=== PATIENT | female | born 1955 | race Caucasian/White ===

== ENCOUNTER 2016-12-12 17:49 | Emergency (ER) | payer OTHER ==
[~2016-12-12] VITALS: Ht 149.9 cm; Wt 66.8 kg
[~2016-12-12 17:49] MED LIST: ATOR40TA28 PO; LISI-618 PO; METF10002 PO; SULF1TAB42 PO
[2016-12-12] MEDS ORDERED: PRAV20TA4 PO (17:51)
[2016-12-12 17:57] LABS: GLUCOSE,POINT OF CARE 134 MG/DL (70-110)
[2016-12-12 19:51] VITALS: BP 142/89
== END 2016-12-12 19:53 | disposition home or self-care (01) ==
LOC: EMS 17:50
DX: L03.011 Cellulitis of right finger (principal); E11.9 Type 2 diabetes mellitus without complications; I10 Essential (primary) hypertension; E78.00 Pure hypercholesterolemia, unspecified; Z88.6 Allergy status to analgesic agent
CPT/HCPCS: 82962; 99284

== ENCOUNTER 2020-12-18 16:21 | Emergency (ER) | payer MEDICARE, OTHER ==
[~2020-12-18] VITALS: Ht 149.9 cm; Wt 79.5 kg
[~2020-12-18 16:21] MED LIST changes: -LISI-618 PO; +LISI20TA24 PO; +METF-446 PO; -METF10002 PO; +PRAV20TA4 PO; -SULF1TAB42 PO
[2020-12-18 17:11] LABS: BASOPHILS % (AUTO) 0.3 % (0.0-2.0); EOSINOPHILS % (AUTO) 0.9 % (1.0-6.0); HEMATOCRIT 35.9 % (36-46); HEMOGLOBIN 11.8 g/dL (12.0-16.0); LYMPHOCYTES # (AUTO) 0.6 K/uL (1.0-4.8); LYMPHOCYTES % (AUTO) 6.4 % (22.0-44.0); MEAN CORPUSCULAR HEMOGLOBIN 31.5 pg (26.0-34.0); MEAN CORPUSCULAR HGB CONC 32.8 G/dL (31.0-37.0); MEAN CORPUSCULAR VOLUME 96 fL (80-100); MONOCYTES # (AUTO) 0.3 K/uL (0.1-1.0); MONOCYTES % (AUTO) 3.1 % (2.0-9.0); NEUTROPHILS % (AUTO) 89.3 % (40.0-70.0); PLATELET COUNT (AUTO) 182 K/uL (150-450); RED BLOOD CELL COUNT(AUTO) 3.74 MIL/uL (4.00-5.20); RED CELL DISTRIBUTION WIDTH 13.4 % (11.5-14.5)
[2020-12-18 17:20] LABS: ANION GAP 8 mmol/L (8-16); CARBON DIOXIDE 29 mmol/L (22-29); CHLORIDE 104 mmol/L (98-107); CREATININE 0.83 mg/dL (0.60-1.30); GLUCOSE,RANDOM 146 mg/dL (70-110); POTASSIUM 3.9 mmol/L (3.5-5.1); SODIUM SERUM 141 mmol/L (136-145); UREA NITROGEN, BLOOD 20 mg/dL (7-18)
[2020-12-18 17:21] LABS: CALCIUM, TOTAL 8.8 mg/dL (8.8-10.5); GLOMERULAR FILTR. RATE CALC > 60 mL/min (>60)
[2020-12-18 17:26] LABS: ALANINE AMINOTRANSFERASE 15 U/L (12-78); ALBUMIN 3.5 g/dL (3.4-5.0); ALKALINE PHOSPHATASE 94 U/L (46-116); ASPARTATE AMINOTRANSFERASE 19 U/L (15-37); BILIRUBIN,TOTAL 0.3 mg/dL (0.1-1.0); LIPASE 92 U/L (73-393)
[2020-12-18] MEDS ORDERED: SODIUM CHLORIDE 0.9% 500 ML IV ONE (18:00)
[2020-12-18 19:28] VITALS: BP 129/80
== END 2020-12-18 19:47 | disposition home or self-care (01) ==
LOC: EMS 16:21
DX: R55 Syncope and collapse (principal); F03.90 Unspecified dementia, unspecified severity, without behavioral disturbance, psychotic disturbance, mood disturbance, and anxiety; I10 Essential (primary) hypertension; E78.00 Pure hypercholesterolemia, unspecified; E11.9 Type 2 diabetes mellitus without complications; Z88.6 Allergy status to analgesic agent; Z79.899 Other long term (current) drug therapy
CPT/HCPCS: 36415; 70450; 71045; 72170; 80053; 82140; 82948; 83690; 84484; 85025; 93005; 99285; J7030